=== PATIENT | female | born 1990 | race African-American/Black ===

== ENCOUNTER → 2018-08-08 | Outpatient (CLI) | payer OTHER ==
--- NOTE | 2018-08-08 11:06 | RADIOLOGY REPORT (SQ) ---
EXAM DESCRIPTION: U/S THYROID/SFT TISS HD NECK COMPLETED DATE/TIME: 08/08/2018 10:35 am REASON FOR STUDY: NONTOXIC GOITER E04.9 NONTOXIC GOITER, UNSPECIFIED COMPARISON: CT cervical spine 05/07/2013 TECHNIQUE: Dynamic and static [place]-scale images acquired of the thyroid gland. Selected additional c olor/power Doppler images recorded. All images stored to PACS. LIMITATIONS: None. FINDINGS: Diffuse thyromegaly is present without a discrete nodule. The gland is hypoechoic, with d iffuse increased color flow from diffuse chronic thyroiditis. Right lobe is 6 x 3 cm in size, left l obe is 6 x 2.5 cm in size. Isthmus is 12 mm in thickness. IMPRESSION: Diffuse thyromegaly with diffuse increased color flow from chronic thyroiditis. No foca l masses TECHNICAL DOCUMENTATION: JOB ID: [id number] [employer]- All Rights Reserved Reading location - IP/workstation name: [email or web address]
== END ==
LOC: RAD 10:02
PROVIDERS: ATTEND Family Medicine
DX: E04.9 Nontoxic goiter, unspecified (principal); E06.5 Other chronic thyroiditis
CPT/HCPCS: 76536